=== PATIENT | female | born 1955 | race Caucasian/White ===

== ENCOUNTER 2017-09-08 12:14 | Day surgery (SDC) | payer OTHER ==
--- NOTE | 2017-09-08 12:28 | EDPHY ---
H & P Stated Complaint: fall while hiking, left wrist pain Time Seen by Provider: 09/08/17 12:27 HPI/ROS: CHIEF COMPLAINT: Left wrist pain after mechanical fall HISTORY OF PRESENT ILLNESS: The patient presents to the ED with complaints of left wrist pain and deformity. She slipped while hiking landing on an outstretched hand. She denies any associated numbness or weakness. She did not strike her head or lose consciousness. She denies additional injury. She rates her discomfort is moderate in nature. REVIEW OF SYSTEMS: A comprehensive 10 point review of systems is otherwise negative aside from elements mentioned in the history of present illness. Source: Patient Exam Limitations: No limitations - Personal History Current Tetanus/Diphtheria Vaccine: Yes Current Tetanus Diphtheria and Acellular Pertussis (TDAP): Yes Tetanus Vaccine Date: < 10 years - Medical/Surgical History Other PMH: none repoted - Social History Smoking Status: Never smoked - Physical Exam Exam: General Appearance: Alert, no distress Head: Atraumatic Neck: Nontender, trachea midline Respiratory: No chest wall tender, subcutaneous air, lungs clear bilaterally Cardiovascular: Regular rate and rhythm Abdomen: Abdomen is soft and nontender, pelvis stable Skin: No lacerations, No abrasion Back: No midline T/L/S pain Extremities: Dorsal deformity noted to the left wrist Neurological: GCS 15, normal motor sensory exam noted in the left upper extremity Constitutional: Initial Vital Signs Temperature (C) 36.7 C 09/08/17 12:17 Heart Rate 69 09/08/17 12:17 Respiratory Rate 18 09/08/17 12:17 Blood Pressure 99/66 L 09/08/17 12:17 O2 Sat (%) 96 09/08/17 12:17 O2 Delivery Mode Room Air Allergies/Adverse Reactions: No Known Allergies Allergy (Unverified 09/08/17 12:17) Home Medications: Medication Instructions Recorded NK [No Known Home Meds] 09/08/17 Medical Decision Making - Diagnostics Imaging Results: Imaging Impressions Wrist X-Ray 09/08/17 12:27 Impression: Comminuted impacted intraarticular distal radius fracture with dorsal displacement and angulation. Left wrist x-ray: Images reviewed by myself, comminuted dorsally displaced distal radius fracture with 100% displacement and shortening. ED Course/Re-evaluation: The patient presents to the ED with a Colles fracture. She is noted to be neurologically intact. The patient underwent a hematoma block. I attempted without success to reduce the fracture. I was having difficulty achieving enough distraction so the distal fragment could be reduced. The patient did have some transient paresthesia in her right thumb. Following the procedure this resolved. Post reduction fluoroscopy pictures demonstrate no significant improvement in the anatomic alignment of the fracture. Consultation was made with Dr. Marquise Bean at 2:00 p.m.. He will evaluate the patient for possible ORIF. The patient was kept NPO in the emergency department. The patient last ate at 8:00 a.m. The patient was evaluated by Dr. Bean at 2:30 p.m.. He will take the patient to the operating room for ORIF. The patient was discharged to the preoperative area at 2:40 p.m. Differential Diagnosis: Differential diagnosis considered includes fracture, sprain, dislocation, neurovascular injury Departure - Departure Disposition: To OP Cath/Surgery Clinical Impression: Colles' fracture Qualifiers: Encounter type: initial encounter Fracture type: closed Laterality: left Qualified Code(s): S52.532A - Colles' fracture of left radius, initial encounter for closed fracture Condition: Good
[2017-09-08] MEDS ORDERED: BUPIVACAINE 0.5% 30 ML SDV ONE (14:35)
[2017-09-08] MEDS ORDERED: ceFAZolin 2 GM/DEXTROSE 100 ML IV ONE (14:41)
--- NOTE | 2017-09-08 14:46 | POSTOPPROG ---
Post Op Note Date of Operation: 09/08/17 Surgeon: Marquise Bean Anesthesia: GET(General Endotracheal), LMA Pre-op Diagnosis: L 4 part intra articular distal radius fracture Post-op Diagnosis: same Procedure: ORIF distal radius fx Inf/Abcess present in the surg proc area at time of surgery?: No EBL: Minimal
--- NOTE | 2017-09-08 14:50 | GHP ---
[f rep st] PREOP HISTORY AND PHYSICAL DATE OF ADMISSION: 09/08/2017 CHIEF COMPLAINT: Left wrist. HISTORY OF PRESENT ILLNESS: Patient is a 62-year-old, right-hand dominant woman, who sustained a fal l on her left outstretched hand. She noted immediate pain and deformity. PAST MEDICAL HISTORY: Positive for potential osteoporosis. MEDICATIONS: She takes no medicines. ALLERGIES: No known drug allergies. SOCIAL HISTORY: Negative for tobacco use. PHYSICAL EXAM: HEAD: Normocephalic. EYES: Pupils equal, round, reactive to light. Extraocular ey e movements intact. NECK: Supple. No JVD, lymphadenopathy. CHEST: Clear to auscultation. HEART: Regular rate and rhythm. No murmurs or gallops. ABDOMEN: Soft, nontender, nondistended. EXTREMI TY: The left wrist has diffuse swelling with dorsal displaced angulation. She has positive sensatio n throughout her fingers, with good capillary refill. IMAGING: AP and lateral radiographs of her wrist showed a comminuted, dorsally displaced distal radi us fracture. ASSESSMENT: Left distal radius fracture. PLAN: The patient is scheduled to undergo open reduction, internal fixation. /[id number]/MODL
[2017-09-08] MEDS ORDERED: MIDAZOLAM 2 MG/2 ML VIAL IVP ONE (14:52)
--- NOTE | 2017-09-08 14:52 | PDANEPAE ---
ANE History of Present Illness 62 yo for orif colles fx ANE Past Medical History - Cardiovascular History Hx Hypertension: No Hx Arrhythmias: No Hx Chest Pain: No Hx Coronary Artery / Peripheral Vascular Disease: No Hx CHF / Valvular Disease: No Hx Palpitations: No - Pulmonary History Hx COPD: No Hx Asthma/Reactive Airway Disease: No Hx Recent Upper Respiratory Infection: No Hx Oxygen in Use at Home: No Hx Sleep Apnea: No ANE Review of Systems Review of Systems: - Exercise capacity METS (RN): 4 METS ANE Patient History - Allergies Allergies/Adverse Reactions: No Known Allergies Allergy (Unverified 09/08/17 12:17) - Home Medications Home medications: home medication list seen and reviewed Home Medications: NK [No Known Home Meds] 09/08/17 [Last Taken Unknown] - NPO status NPO Since - Liquids (Date): 09/08/17 NPO Since - Liquids (Time): 08:30 NPO Since - Solids (Date): 09/08/17 NPO Since - Solids (Time): 08:30 - Anes Hx Anes Hx: no prior problems - Smoking Hx Smoking Status: Never smoked ANE Labs/Vital Signs - Vital Signs Blood Pressure: 140/80 Heart Rate: 84 Respiratory Rate: 18 O2 Sat (%): 95 Height: 5 ft 6 in Weight: 58.967 kg ANE Physical Exam - Airway Neck exam: FROM Mallampati Score: Class 2 Mouth exam: normal dental/mouth exam - Pulmonary Pulmonary: no respiratory distress - Cardiovascular Cardiovascular: regular rate and rhythym - ASA Status ASA Status: I ANE Anesthesia Plan Anesthesia Plan: general endotracheal anesthesia
[2017-09-08] MEDS ORDERED: MIDAZOLAM 2 MG/2 ML VIAL ONE (14:55)
[2017-09-08] MEDS ORDERED: fentaNYL 100 MCG/2 ML INJ ONE (14:55)
[2017-09-08] MEDS ORDERED: REMIFENTANIL HCL 1 MG VIAL ONE (14:55)
[2017-09-08] MEDS ORDERED: PROPOFOL/EMULSION 500 MG/50 ML BOTTLE IV ONE (14:56)
[2017-09-08] MEDS ORDERED: ceFAZolin 2 GM/SWFI 2 GM/20 ML SYR IVP ONE (15:00)
--- NOTE | 2017-09-08 15:35 | GCON ---
[f rep st] CONSULTATION DATE OF CONSULTATION: 09/08/2017 REASON FOR CONSULTATION: Left wrist pain. HISTORY OF PRESENT ILLNESS: The patient is a 62-year-old right-hand dominant woman who sustained a f all on her left outstretched hand; on the day of presentation to the emergency room. She noted immed iate pain and deformity. She was evaluated in the emergency room and noted to have a comminuted intr a-articular significantly displaced distal radius fracture. Attempted closed reduction was performed , but, based on the nature of the fracture pattern, favorable reduction was not obtainable. EXAMINATION: There is diffuse swelling and tenderness about the wrist. There is dorsal displacement clinically. She has positive sensation throughout her fingers with good capillary refill. IMAGING: AP and lateral radiographs of her wrist show intraarticular (4-part) grossly displaced dist al radius fracture. ASSESSMENT: Left distal radius fracture. PLAN: Based on the displaced nature of her fracture, it was recommended that operative treatment con sisting of open reduction/ internal fixation be pursued. There is concern over leaving it in this di splaced position for future treatment. Toward this end, it is recommended that she be taken to the o perating room as soon as OR availability is ready for treatment. /[id number]/MODL
[2017-09-08] MEDS ORDERED: KETOROLAC 30 MG/1 ML SDV ONE (16:14)
[2017-09-08] MEDS ORDERED: ONDANSETRON 4 MG/2 ML VIAL ONE (16:14)
[2017-09-08] MEDS ORDERED: ROCURONIUM 50 MG/5 ML VIAL ONE (16:14)
[2017-09-08] MEDS ORDERED: SUGAMMADEX SODIUM 200 MG/2 ML VIAL IVP ONE (16:14)
[2017-09-08] MEDS ORDERED: HYDROmorphONE/DILAUDID 1 MG/ML INJ IVP PRN (16:36)
[2017-09-08] MEDS ORDERED: OXYCODONE/APAP 5/325 TAB PO PRN (16:36)
[2017-09-08] MEDS ORDERED: HYDROCODONE/APAP 5/325 TAB PO PRN (16:36)
[2017-09-08] MEDS ORDERED: fentaNYL 100 MCG/2 ML INJ IVP PRN (16:36)
[2017-09-08] MEDS ORDERED: ONDANSETRON 4 MG/2 ML VIAL IVP PRN (16:36)
[2017-09-08] MEDS ORDERED: NALOXONE HCL 0.4 MG/ML INJ IVP PRN (16:36)
--- NOTE | 2017-09-08 17:12 | POSTANESTH ---
Post Anesthetic Evaluation Cardiovascular Status: Normal, Stable Respiratory Status: Normal, Stable Level of Consciousness/Mental Status: Can Participate in Eval Pain Control: Adequate, Prn Tx Ordered Nausea/Vomiting Control: Adequate, Prn Tx Ordered Complications Possibly Related to Anesthesia: None Noted
[2017-09-08] MEDS ORDERED: HYDROCODONE/APAP 5/325 TAB ONE (17:31)
[2017-09-08 17:40] VITALS: TEMP 97.5
[2017-09-08 17:54] VITALS: PULSE 94; O2SAT 93
[2017-09-08 18:39] VITALS: BP 112/57; RESP 16
--- NOTE | 2017-09-09 05:28 | GOP ---
[f rep st] OPERATIVE REPORT DATE OF OPERATION: 09/08/2017 SURGEON: Marquise Bean MD ANESTHESIA: General. PREOPERATIVE DIAGNOSIS: Left 4-part intra-articular distal radius fracture. POSTOPERATIVE DIAGNOSIS: Left 4-part intra-articular distal radius fracture. PROCEDURE PERFORMED: Open reduction, internal fixation, left 4-part intra-articular distal radius fr acture. FINDINGS: ESTIMATED BLOOD LOSS: Minimal. INDICATIONS: The patient is a 62-year-old,, right-hand dominant woman, who sustained a fall hiking, resulting in a complex, displaced, intra-articular, distal radius fracture. Attempt at closed reduct ion was tried by the emergency room doctor which did not provide adequate reduction. Based on her am ount of displacement present, it was recommended that operative treatment, consisting of open reducti on, internal fixation be pursued. The patient acknowledged she understood the potential risks includ ing, but not limited to, bleeding, infection, neurovascular damage, leading to loss of limb and funct ion, malunion, nonunion, need for hardware removal, development of pain, functional limitations, arth ritis, despite operative treatment and anesthetic risks. She acknowledged she understood the potenti al risks, planned procedure, postop plan well, and had all questions answered prior to surgery. She gave her consent for the operative procedures. DESCRIPTION OF PROCEDURE: Patient was brought to the operating room after IV antibiotics were admini stered. She was placed in a supine position where general anesthetic was administered. A tourniquet was placed on the left upper arm and the left upper extremity was prepped and draped in standard cheikh rile fashion. After marking the incision and Dc wrap exsanguination, tourniquet was inflated to 250 . A longitudinal incision was made along the volar aspect of the distal radius. Skin and subcutaneo us tissue were sharply incised. The flexor retinaculum was incised in line with the skin incision. Dissection was carried just ulnar to the flexor carpi radialis, dissecting down to the periosteal lay er of the distal radius. Distally, reflection was carried medially and laterally at the joint surfac e to allow for visualization and reduction of the split articular fragments. A percutaneous K-wire w as placed in the radial styloid. The fracture was manipulated into a reduced position. The K-wire w as advanced. A second K-wire was placed further stabilizing this. The fracture articulating with th e lunate fossa was then reduced and pinned with a Ines wire. Fluoroscopic views confirmed favor able reduction. A volar locking distal radial plate (Synthes) was placed on the volar aspect. Plate position was confirmed after it was pinned in place with olive wires. Distal fixation was accomplis hed into the distal segments initially with a 2.4 mm nonlocking screw into the major radial segment. Two additional 2.4 mm locking screws were placed in the radial segment with three 2.4 mm locking scr ews placed in the more ulnarly displaced segment. The initial screw gained purchase with a dorsally split fragment, stabilizing this as well. Fluoroscopic views confirmed the fracture was still reduce d in regard to length and volar angulation. A 2.7 mm nonlocking cortical screw was placed in the obl ique hole in the plate prior to the fluoroscopic evaluation. No additional length adjustments were r equired. Two 2.4 mm cortical locking screws were added to the proximal fixation. Fluoroscopic views revealed favorable reduction and hardware placement. Cancellous allograft chips were then added thr ough the triangular-shaped hole in the plate to fill an osseous void. Attention was directed towards closure. The volar retinaculum was closed with 2-0 Vicryl suture in an interrupted fashion. Subcut aneous tissue was closed with 3-0 Vicryl suture in an interrupted fashion. Skin closed with 4-0 nylo n interrupted vertical mattress sutures. 0.5% Marcaine without epinephrine was injected in the wound sites. The wounds were dressed with sterile Adaptic, 4x4, and Webril, and a volar splint was applie d. The patient was taken to recovery room, extubated, in stable condition postoperatively. All spon ge, needle, instrument counts were reported as being correct. DRAINS: None. COMPLICATIONS: None. PLAN: The patient will be discharged home nonweightbearing on her operative extremity. [place], she was instructed to seek orthopedic followup upon return home. /[id number]/MODL
== END 2017-09-08 18:42 | disposition home or self-care (01) ==
LOC: FSGY 14:35
PROVIDERS: ATTEND Orthopaedic Surgery Foot and Ankle Surgery
PROC: 0PSJ04Z Reposition Left Radius with Internal Fixation Device, Open Approach (ICD-10-PCS; principal; 2017-09-08 15:00)
DX: S52.572A Other intraarticular fracture of lower end of left radius, initial encounter for closed fracture (principal); W01.0XXA Fall on same level from slipping, tripping and stumbling without subsequent striking against object, initial encounter; Y93.01 Activity, walking, marching and hiking; Y92.828 Other wilderness area as the place of occurrence of the external cause
CPT/HCPCS: 25609; 73110; C1769; C1713; C1762; J0690; J1885; J2250; J2405; J2704; J3010